=== PATIENT | male | born 1955 | race Caucasian/White ===

== ENCOUNTER 2020-05-17 18:45 | Emergency (ER) | payer OTHER ==
[2020-05-17 19:35] LABS: BASOPHIL 0.3 % (0-2); EOSINOPHIL 0.3 % (0-7); HCT 49.4 % (42.0-52.0); HGB 16.7 g/dl (13.2-18.0); LYMPHOCYTE 21.8 % (15-48); MCH 30.3 pg (25.0-31.0); MCHC 33.8 g/dL (32.0-36.0); MCV 89.5 fL (78.0-100.0); MONOCYTE 7.3 % (0-12); MPV 9.2 fL (6.0-9.5); NEUTROPHIL 69.7 % (41-80); NRBC 0; PLT 285 K/uL (150-400); RBC 5.52 M/uL (4.70-6.00); RDW 12.6 % (11.5-14.0); WBC 9.5 K/uL (4.0-10.5)
[2020-05-17 20:09] LABS: ALBUMIN 4.1 g/dL (3.4-5.0); BILIRUBIN - TOTAL 1.1 mg/dL (0.2-1.0); BUN/CREAT RATIO (CALC) 13.9 RATIO; CREATININE 1.15 mg/dL (0.67-1.17); GLOBULIN (CALCULATION) 3.5 g/dL; TOTAL PROTEIN 7.6 g/dL (6.4-8.2)
[2020-05-17] MEDS ORDERED: PREPARATION H1 EACH TOP (21:50)
[2020-05-17] MEDS ORDERED: PREPARATION H1 EAC1 PR (21:50)
[2020-05-17] MEDS ORDERED: STOOL SOFTENER100 M1 PO (21:50)
[2020-05-17] MEDS ORDERED: MIRALAX17 GM PO (21:50)
[2020-05-20] MEDS ORDERED: PERCOCET 5-3251 EACH PO (11:12)
== END 2020-05-17 22:15 | disposition home or self-care (01) ==
LOC: FER 18:45
PROVIDERS: Emergency Medicine
DX: K64.5 Perianal venous thrombosis (principal); R03.0 Elevated blood-pressure reading, without diagnosis of hypertension; R19.7 Diarrhea, unspecified
CPT/HCPCS: 36415; 80053; 83690; 85025; J2001

== ENCOUNTER → 2020-05-20 | Day surgery (SDC) | payer OTHER ==
[~2020-05-20] MED LIST: MIRALAX17 GM PO; PERCOCET 5-3251 EACH PO; PREPARATION H1 EAC1 PR; PREPARATION H1 EACH TOP; STOOL SOFTENER100 M1 PO
== END | disposition home or self-care (01) ==
LOC: FAS 09:22
DX: K64.5 Perianal venous thrombosis (principal); K64.4 Residual hemorrhoidal skin tags; M19.90 Unspecified osteoarthritis, unspecified site; G47.30 Sleep apnea, unspecified; Z98.890 Other specified postprocedural states; Z82.49 Family history of ischemic heart disease and other diseases of the circulatory system; Z20.822 Contact with and (suspected) exposure to COVID-19
CPT/HCPCS: J0694; J2250; J2405; J2704; J3010; J7120